=== PATIENT | male | born 1960 | race Caucasian/White ===

== ENCOUNTER → 2021-08-01 10:28 | Outpatient (CLI) | payer OTHER, SELFPAY ==
[2021-08-01 12:45] LABS: BUN Creatinine Ratio 24.4 (6-22); Blood Urea Nitrogen 21 mg/dL (9-20); Calcium 9.9 mg/dL (8.4-10.2); Carbon Dioxide 30 mmol/L (22-32); Chloride 103 mmol/L (98-107); Cholesterol 201 mg/dL (140-199); Estimated Glomerular Filt Rate > 60.0 mL/min (>60); Glucose 80 mg/dL (70-100); HDL Cholesterol 34 mg/dL (40-60); HEMOLYSIS < 15 (0-50); LDL Cholesterol Calculated 135 mg/dL (<100); Potassium 4.7 mmol/L (3.4-5.1); Sodium 143 mmol/L (137-145); Triglycerides 158 mg/dL (35-150)
[2021-08-01 13:17] LABS: Prostate Specific Antigen Scrn 0.759 ng/mL (0.1-4.0); TSH w/ Reflex to FT4 2.36 uIU/mL (0.47-4.68)
[2021-08-01 15:29] LABS: Vitamin D 25 Hydroxy (D3) 24.4 ng/mL (30.0-100.0)
== END ==
PROVIDERS: PCP Student in an Organized Health Care Education/Training Program; Referring Provider Student in an Organized Health Care Education/Training Program; Visit Provider Student in an Organized Health Care Education/Training Program
DX: Z12.5 Encounter for screening for malignant neoplasm of prostate (principal); I10 Essential (primary) hypertension; E55.9 Vitamin D deficiency, unspecified; Z13.220 Encounter for screening for lipoid disorders
CPT/HCPCS: 36415; 80048; 80061; 82306; 84443; G0103

== ENCOUNTER 2023-05-11 10:56 | Day surgery (SDC) | payer OTHER, SELFPAY ==
[2023-05-11] VITALS (7 sets, daily range): BP systolic 114–165; BP diastolic 54–68; PULSE 53–66; RESP 15–18; TEMP 36.4–36.6; O2SAT 92–96; BMI 32.5
--- NOTE | 2023-05-11 | PATH_ITS ---
[facility] Accession Number: [id number] No. of containers..01 Tissue . 01 Material submitted: . rectum - RECTAL POLYP . 01 Diagnosis: Rectal Polyp, Biopsy: Hyperplastic polyp. [facility] 05/23/2023 1135 Local . 01 Electronically signed: . Jayde Faustin MD, Pathologist NPI- [id number] . 01 Gross description: . RECTAL POLYP: Received in formalin are 3 fragment(s) of lee, soft tissue measuring 0.1 x 0.1 x 0.1 cm to 0.3 x 0.3 x 0.1 cm submitted entirely in 1 cassette(s) /TINY 05/16/2023 0048 Local . 01 Pathologist provided ICD-10: D12.8 . 01 CPT . 170536 Specimen Comment: A courtesy copy of this report has been sent to [facility] Pathology Performed at: 01 [facility] [address] [place] [address] [address], [place], [place] [id number] MD Hermilo Lawler MD Phone: [phone]
[2023-05-11] MEDS: LACTATED RINGERS 1,000 ML 84 ML IV (11:17)
--- NOTE | 2023-05-11 13:47 | PM.HP.1 ---
History of Present Illness History of Present Illness Date Patient Seen: 05/11/23 Time Patient Seen: 13:47 Chief complaint: Screening Colonoscopy Narrative: 8-year-old male who presents for a screening colonoscopy. Last colonoscopy was 10 years ago in [facility]. He believes he might have had some polyps at the time. He has no known family history of colon cancer. An no symptoms that are concerning to him. He no further questions and would like to proceed [facility] Medical History (Updated 05/11/23 @ 13:48 by Dora Mclaughlin MD) Carpal tunnel syndrome Cataracts, bilateral (~2020) Chronic back pain (~1985) Foot pain (~2018) Seizure Tinnitus (~1981) Surgical History (Updated 08/01/21 @ 12:35 by Raymond Rachel MD) Anesthesia History of carpal tunnel release Family History (Updated 07/31/21 @ 21:43 by Maria Elena Gonzales) Mother Multiple sclerosis Social History Smoking Status: Former smoker alcohol intake: former Meds Home Medications and Allergies Home Medications Medication Instructions Recorded Confirmed Type losartan 100 mg tablet See Rx Instructions .Route 11/27/22 05/11/23 Rx .COMPLEX #90 tabs Allergies Allergy/AdvReac Type Severity Reaction Status Date / Time lisinopril AdvReac Mild Cough Verified 05/11/23 11:20 Exam Vital Signs (past 8 hours): - 05/11/23 11:27 Temperature 97.6 F Pulse Rate 66 Respiratory Rate 16 Blood Pressure 165/68 H Pulse Oximetry 95 Oxygen Delivery Method Room Air Oxygen Delivery Method Room Air Const General: cooperative, healthy appearing and comfortable Nutritional Appearance: obese (BMI 32) Orientation: alert, awake and oriented x3 HENMT Head: normal to inspection Mouth: oral mucosae normal Eyes General: appearance normal, both eyes and all related structures Resp Effort & Inspection: normal respiratory effort and able to speak in complete sentences GI Palpation: soft and No tender Assessment & Plan Assessment and plan (1) Screening for colon cancer: Status: Acute (2) History of colon polyps: Status: Acute Assessment & Plan narrative: Presents today for screening colonoscopy I discussed the risks benefits and alternatives including but not limited to perforation of the colon and an incomplete exam he fully understands these risks and would like to proceed.
--- NOTE | 2023-05-11 14:39 | PM.OP.COLON ---
Operative Date/Time/Diagnoses Date of procedure: 05/11/23 Time of procedure: 14:39 Pre-op diagnosis: Colon cancer screening, history of polyps, no family history of colon cancer Post-op diagnosis: same Procedure & Clinicians Study performed: Colonoscopy and biopsy Same procedure as scheduled: Yes Indications: Colon cancer screening, history of polyps, no family history of colon cancer Surgeon: Dora Mclaughlin Procedure Notes Procedure in detail: Patient was taken to the endoscopy suite and placed in a left lateral decubitus position. A time-out was performed. With the help of anesthesiologist conscious sedation was induced and monitored throughout the case. A digital rectal exam was performed and there were no masses or strictures. The prostate gland was smooth. There were no external hemorrhoids. The colonoscope was introduced into the anal canal and advanced through to the cecum. There were moderate number of sigmoid diverticula. A photograph of the appendiceal orifice was obtained. The bowel prep was good Canby bowel prep score of 2. The scope was then withdrawn for a total of 12 minutes and a few very small rectal polyps were seen and biopsied. Sent together in the same specimen jar for pathology. The scope was then retroflexed and a photograph of the internal hemorrhoidal piles was obtained. Findings: divertiulosis and polyp(s) Specimen(s): other (Rectal polyps) Complications: none Post-procedure Plan for aftercare: Likely a 10 year follow-up but will wait for final pathology results for the final recommendation here. I do recommend a daily or twice daily fiber supplement for any patient was diverticula hemorrhoids or polyps.
== END 2023-05-11 14:55 | disposition home or self-care (01) ==
PROVIDERS: PCP Student in an Organized Health Care Education/Training Program; Referring Provider Surgery; Visit Provider Surgery
PROC: 0DJD8ZZ Inspection of Lower Intestinal Tract, Via Natural or Artificial Opening Endoscopic (ICD-10-PCS; CPT 45378; principal; 2023-05-11 11:30)
DX: Z12.11 Encounter for screening for malignant neoplasm of colon (principal); Z86.010 Personal history of colon polyps; K57.30 Diverticulosis of large intestine without perforation or abscess without bleeding; K62.1 Rectal polyp
CPT/HCPCS: 45380; J2704

== ENCOUNTER → 2023-05-18 10:44 | Outpatient (CLI) | payer OTHER, SELFPAY ==
[2023-05-18 12:01] LABS: Add Manual Diff / Slide Review NO; Basophils Absolute Auto 100 /uL (0-100); Basophils Percent Auto 1.4 % (0-2); Eosinophils Absolute Auto 300 /uL (0-450); Eosinophils Percent Auto 5.9 % (2-4); Hematocrit 40.7 % (41-53); Hemoglobin 14.1 g/dL (13.5-17.5); Lymphocytes Absolute Auto 1500 /uL (1100-4500); Lymphocytes Percent Auto 28.1 % (25-40); Mean Corpuscular HGB Conc 34.6 % (30-36); Mean Corpuscular Hemoglobin 30.3 PG (26-34); Mean Corpuscular Volume 87.5 fL (80-100); Monocytes Absolute Auto 700 /uL (0-900); Monocytes Percent Auto 12.1 % (3-14); Neutrophils Absolute Auto 2900 /uL (1500-7000); Neutrophils Percent Auto 52.5 % (50-75); Platelet Count 252 X10^3/uL (150-400); Red Blood Cell Count 4.65 X10^6/uL (4.5-5.9); Red Cell Distribution Width 12.5 % (11.6-14.8); White Blood Cell Count 5.4 X10^3/uL (4.5-11.0)
[2023-05-18 12:13] LABS: Alanine Aminotransferase 27 IU/L (<50); Albumin 4.3 g/dL (3.5-5.0); Albumin Globulin Ratio 1.5 (1.0-2.8); Alkaline Phosphatase 39 U/L (38-126); Aspartate Aminotransferase 24 IU/L (17-59); Bilirubin Total 1.2 mg/dL (0.2-1.3); Blood Urea Nitrogen 15 mg/dL (9-20); Calcium 9.4 mg/dL (8.4-10.2); Carbon Dioxide 26 mmol/L (22-32); Chloride 104 mmol/L (98-107); Cholesterol 144 mg/dL (140-199); Estimated Glomerular Filt Rate > 60 mL/min (>60); Globulin 2.8 g/dL (1.7-4.1); Glucose 87 mg/dL (80-110); HDL Cholesterol 35 mg/dL (40-60); HEMOLYSIS < 15 (0-50); LDL Cholesterol Calculated 86 mg/dL (<100); Potassium 4.3 mmol/L (3.4-5.1); Sodium 138 mmol/L (137-145); Total Protein 7.1 g/dL (6.3-8.2); Triglycerides 116 mg/dL (35-150)
[2023-05-18 12:29] LABS: Vitamin D 25 Hydroxy (D3) 46.2 ng/mL (30.0-100.0)
[2023-05-18 12:41] LABS: Prostate Specific Antigen 0.893 ng/mL (0.10-4.00)
[2023-05-18 12:57] LABS: Appearance Urine UA CLEAR; Bilirubin Urine UA NEGATIVE (NEGATIVE); Color Urine UA YELLOW; Glucose Urine UA NEGATIVE (Negative); Ketones Urine UA NEGATIVE (NEGATIVE); Leukocyte Esterase Urine UA NEGATIVE (NEGATIVE); Nitrite Urine UA NEGATIVE (Negative); Occult Blood Urine UA NEGATIVE (Negative); Protein Urine UA NEGATIVE (Negative); Specific Gravity Urine UA <=1.005 (1.000-1.035); Urobilinogen Urine UA 0.2 E.U./dL (0.2)
[2023-05-18 13:08] LABS: Hep C Virus Ab w/Reflex Quant NEGATIVE s/c (NEGATIVE)
== END ==
PROVIDERS: PCP Pediatrics; Referring Provider Pediatrics; Visit Provider Pediatrics
DX: I10 Essential (primary) hypertension (principal); Z12.11 Encounter for screening for malignant neoplasm of colon; Z86.010 Personal history of colon polyps; E78.2 Mixed hyperlipidemia; E55.9 Vitamin D deficiency, unspecified
CPT/HCPCS: 36415; 80053; 80061; 81003; 82306; 84153; 85025; 86803